=== PATIENT | female | born 1930 | race Caucasian/White ===

== ENCOUNTER → 2016-10-18 | Outpatient (CLI) | payer MEDICARE, BC ==
[~2016-10-18] VITALS: Ht 162.6 cm; Wt 84.4 kg
[~2016-10-18] MED LIST: AMARYL2 MG PO; ASPIRIN EC81 MG PO; CALCIUM 600 +1 EAC6 PO; CENTRUM SILVER1 TAB PO; DITROPAN XL10 MG PO; FEMARA 2.5 MG2.5 MG PO; GLUCOPHAGE500 MG PO; KLOR-CON M2020 MEQ PO; LANOXIN (DIGI125 MCG PO; LASIX20 MG PO; LIPITOR40 MG PO; LOPRESSOR25 MG PO; NORVASC10 MG PO; VALSARTAN-HCTZ1 EAC2 PO; VITAMIN D1000 UNIT PO; VITAMIN E400 UNI2 PO
--- NOTE | ~2016-10-18 | ECHO ---
Transesophageal Echocardiography Report ([facility]) Demographics Patient Name BRIDGET MORRIS Date of Study 10/18/2016 Patient Number [id number] Visit Number [id number] Date of 1930 Room Number Gender Female Number Age 86 year(s) Referring Irene Traore Revenue Cycle Analyst Melissa Weathers, Physician RT,RVT,RDCS Physician Interpreting Irene Traore Hose Coupling Joiner Physician MD Supervising Ordering Irene Traore MD/MLP Physician MD Nurse Stress Hand Sander Conclusions Summary Supplemental 3D ALEX images obtained. Left atrium is severely dilated. The BEBETO is occluded with watchman device, it is well seated and there is no evidence of significant leak. No thrombus in LA/BEBETO. There is evidence of an atrial septal defect by color Doppler. Normal LV size and systolic function. Moderate mitral annular calcification. Moderate degenerative changes of the MV. Moderate mitral regurgitation by color Doppler. The AV is moderately calcified with restricted opening. The tricuspid valve has been repaired and there is moderate to severe tricuspid regurgitation. 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 Procedure Type of Study ALEX procedure:Doppler , Color Doppler. Procedure Date Date: 10/18/2016 Start: 10:59 AM Study Location: Echo Lab Technical Quality: Good visualization Additional Indications:Follow up on Watchman's Device. Appropriate Use Criteria: 9 Patient Status: Routine BP: 135/52 mmHg O2 Saturation: 95 % ALEX Performed By: the attending and the site safety coordinator Type of Anesthesia: Moderate sedation Findings Left Ventricle Normal LV size and systolic function. Right Ventricle RV is grossly normal in size. Left Atrium Left atrium is severely dilated. The BEBETO is occluded with watchman device, it is well seated and there is no evidence of leak. There is evidence of an atrial septal defect by color Doppler. Right Atrium The right atrium is moderately dilated. There is a prominent Eustachian valve seen in the right atrium. Mitral Valve Moderate mitral regurgitation by color Doppler. Moderate mitral annular calcification. Moderate degenerative changes of the MV. Aortic Valve The AV is moderately calcified with restricted opening. Tricuspid Valve The tricuspid valve has been repaired and there is moderate to severe tricuspid regurgitation. Pulmonic Valve Normal pulmonic valve structure and function. Miscellaneous The patient was brought to the [facility] lab in the fasting state after informed consent was obtained in the written and verbal format. She was prepped with Lidocaine e spray as usual. Bite block was placed by me. Once adequate anesthesia was obtained with anesthesia guidance with propofol sedation the ALEX probe was placed by me down into the stomach. It was pulled back slightly after a few views were obtained in the transgastric level to the transesophageal position where the majority of the case was carried out. At the end of the case the probe was rotated and withdrawn. Patient tolerated the procedure well. 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 Contractility Score LV regional wall motion:(0-Non visualized 1-Normal 2-Hypokinesis 3-Akinesis 4-Dyskinesis 5-Aneurysm) Signature dtt: NICOLE MEHTA dtd: 10/18/16 1059 Physician Self Edit
== END | disposition disaster alternative care site (69) ==
LOC: GOPD 10-11 → GSDC 09:21 → GOPP 09:21 → GOPD 10:00 → EDSTATUS 10:00
DX: Z48.812 Encounter for surgical aftercare following surgery on the circulatory system (principal); Z95.818 Presence of other cardiac implants and grafts; I47.1 Supraventricular tachycardia; E11.9 Type 2 diabetes mellitus without complications; Z79.84 Long term (current) use of oral hypoglycemic drugs; I10 Essential (primary) hypertension; E78.5 Hyperlipidemia, unspecified
CPT/HCPCS: J2001; J7030